=== PATIENT | female | born 1970 | race African-American/Black ===

== ENCOUNTER 2020-02-12 13:28 | Emergency (ER) | payer OTHER ==
[2020-02-12 13:45] VITALS: TEMP 97.9
--- NOTE | 2020-02-12 14:17 | ED ---
General Adult HPI - General Source: patient, RN notes reviewed, old records reviewed Mode of arrival: ambulatory Limitations: no limitations <Devendra Barclay - Last Filed: 02/12/20 19:31> <Alexandra Mckinley - Last Filed: 02/16/20 01:16> - General Chief complaint: Psychiatric Symptoms Stated complaint: mental health Time Seen by Provider: 02/12/20 13:35 - History of Present Illness Initial comments: This is a 49-year-old female who comes from [facility] for alcohol and cocaine abuse. Patient comes in today because she stated she woke up this morning at 6:30 and was depressed and suicidal. Patient states she's attempted suicide many times in the past and she felt as though she would do it again today but she had no specific plan. Patient denies any event started her depression is why she states she just woke up this way. Patient denies any headache patient denies numbness weakness. Patient denies any chest pain difficult breathing shortness of breath. Patient denies any chest pain or palpitations. Patient denies any recent fever chills or cough (Devendra Barclay) - Related Data Allergies Allergy/AdvReac Type Severity Reaction Status Date / Time No Known Allergies Allergy Verified 02/12/20 13:38 Review of Systems ROS Other: All systems not noted in ROS Statement are negative. <Devendra Barclay - Last Filed: 02/12/20 19:31> ROS Other: All systems not noted in ROS Statement are negative. <Alexandra Mckinley - Last Filed: 02/16/20 01:16> ROS Statement: Those systems with pertinent positive or pertinent negative responses have been documented in the HPI. General Exam Limitations: no limitations <Devendra Barclay - Last Filed: 02/12/20 19:31> - General Exam Comments Initial Comments: GENERAL: Patient is well-developed and well-nourished. Patient is nontoxic and well-hydr ated and is in no acute distress. ENT: Neck is soft and supple. No significant lymphadenopathy is noted. Oropharynx is clear. Moist mucous membranes. Neck has full range of motion without eliciting any pain. EYES: The sclera were anicteric and conjunctiva were pink and moist. Extraocular movements were intact and pupils were equal round and reactive to light. Eyelids were unremarkable. PULMONARY: Unlabored respirations. Good breath sounds bilaterally. No audible rales rhonchi or wheezing was noted. CARDIOVASCULAR: There is a regular rate and rhythm without any murmurs gallops or rubs. ABDOMEN: Soft and nontender with normal bowel sounds. Distended abdomen SKIN: Skin is clear with no lesions or rashes and otherwise unremarkable. NEUROLOGIC: Patient is alert and oriented x3. Cranial nerves II through XII are grossly intact. Motor and sensory are also intact. Normal speech, volume and content. Symmetrical smile. MUSCULOSKELETAL: Normal extremities with adequate strength and full range of motion. No lower extremity swelling or edema. No calf tenderness. LYMPHATICS: No significant lymphadenopathy is noted PSYCHIATRIC: Patient says she is very depressed and want to kill himself. (Devendra Barclay) Course Vital Signs 02/12/20 02/12/20 02/12/20 13:34 18:43 23:31 Temperature 97.9 F 97.9 F Pulse Rate 88 88 81 Respiratory 18 18 16 Rate Blood Pressure 127/86 132/79 129/75 O2 Sat by Pulse 100 99 99 Oximetry Medical Decision Making <Devendra Barclay - Last Filed: 02/12/20 19:31> <Alexandra Mckinley - Last Filed: 02/16/20 01:16> - Medical Decision Making I filled out a clinical certification for the patient to be admitted. EPS will be searching out of place to transfer the patient (Devendra Barclay) Patient is being transferred to [facility]. (Alexandra Mckinley) - Lab Data Lab Results 02/12/20 Range/Units 13:49 Urine Opiates Screen Not Detected (NotDetected) Ur Oxycodone Screen Not Detected (NotDetected) Urine Methadone Screen Not Detected (NotDetected) Ur Propoxyphene Screen Not Detected (NotDetected) Ur Barbiturates Screen Not Detected (NotDetected) U Tricyclic Antidepress Detected H (NotDetected) Ur Phencyclidine Scrn Not Detected (NotDetected) Ur Amphetamines Screen Not Detected (NotDetected) U Methamphetamines Scrn Not Detected (NotDetected) U Benzodiazepines Scrn Not Detected (NotDetected) Urine Cocaine Screen Detected H (NotDetected) U Marijuana (THC) Screen Not Detected (NotDetected) Disposition Time of Disposition: 19:32 <Devendra Barclay - Last Filed: 02/12/20 19:31> Is patient prescribed a controlled substance at d/c from ED?: No - Out of Hospital Transfer - Req. Specs Out of Hospital Transfer - Requested Specifics: Psychiatric Non-ICU ([place]) <Alexandra Mckinley - Last Filed: 02/16/20 01:16> Clinical Impression: Suicidal ideation, Depression Disposition: TRANSFER TO PSYCH HOSP/UNIT Condition: Stable Referrals: None,Stated [Primary Care Provider] - 1-2 days
[2020-02-12 14:30] LABS: Amphetamine Screen,Urine Not Detected (NotDetected); Barbiturate Screen,Urine Not Detected (NotDetected); Benzodiazepines Screen,Urine Not Detected (NotDetected); Cocaine Screen,Urine Detected (NotDetected); Methadone Screen, Urine Not Detected (NotDetected); Opiate Screen,Urine Not Detected (NotDetected); Oxycodone Screen, Urine Not Detected (NotDetected); Phencyclidine Screen,Urine Not Detected (NotDetected); Tricyclic Antidepressant,Urine Detected (NotDetected); Urn Cannabinoid Scrn Not Detected (NotDetected)
[2020-02-12] MEDS ORDERED: IBUPROFEN 600 MG TAB PO STA ×2 (15:30→22:58)
[2020-02-12] MEDS ORDERED: HEPARIN SODIUM,PORCINE 5,000 UNIT/ML 1 ML VIAL IV ONE (16:28)
[2020-02-12] MEDS ORDERED: HEPARIN SOD,PORK IN 0.45% NACL 25,000 UNIT in 0.45% NACL 1 250ML.BAG IV SCH (16:30)
[2020-02-12] MEDS ORDERED: ACETAMINOPHEN TAB 500 MG TAB PO STA (20:46)
[2020-02-12 23:32] VITALS: BP 129/75; PULSE 81; RESP 16
== END 2020-02-12 23:31 ==
LOC: EC 13:28
DX: F32.9 Major depressive disorder, single episode, unspecified (principal); R45.851 Suicidal ideations
CPT/HCPCS: 80306; 82075; 99285